=== PATIENT | female | born 1930 | race Caucasian/White ===

== ENCOUNTER → 2016-03-15 | Outpatient (CLI) | payer MEDICARE, BC ==
[~2016-03-15] MED LIST: ASPIRIN 81M81 MG/TA2 PO; ASPIRIN E.C. 8181 MG PO; CALCIUM CARBON500 M1 PO; CALCIUM CITRAT250 MG PO; CALCIUM CITRATE1 TAB PO; CARDENE 30MG CA30 MG PO; CELEBREX 200MG200 MG PO; CELEBREX200 MG PO; CEPHALEXIN500 M1 PO; COMPAZINE 110 MG/TAB PO; DEXILANT60 MG PO; DOXYCYCLINE 10100 MG PO; FENTANYL 12MCG TD; FENTANYL 25 MCG TD; FOLIC ACID 11 MG/TA1 PO; GEMCOR600 MG PO; IRON FERROUS S325 MG PO; IRON325 MG PO; LASIX 20MG TABL20 MG PO; LEVAQUIN 5500 MG/TA1 PO; LISINOPRIL10 MG PO; LOPID 600M600 MG/TAB PO; LOPRESSOR 225 MG/TAB PO; MEDROL 4MG DOSPA4 MG PO; MULTIPLE VITAMI1 CAP PO; MULTIPLE VITAMI1 TAB PO; MVI; NEURONTIN300 MG/CAP PO; NEXIUM 40MG40 MG PO; NORCO 325 MG-51 TAB PO; NORCOELIX PO; PHENERGAN 25 TA25 MG PO; PRILOSEC 20MG20 MG PO; PRINIVIL10 MG PO; PRINIVIL2.5 MG PO; PRINIVIL20 MG PO; PYRIDIUM 100MG100 MG PO; TOPROL XL 25MG25 MG PO; TOPROL XL25 MG PO; TYLENOL 325MG325 MG PO; TYLENOL 500MG500 MG PO; ULTRAM 50MG TAB50 MG PO; VALTREX1 GM PO; ZESTRIL 20MG TA20 MG PO; ZOFRAN 4MG T4 MG/TAB PO; ZOFRAN ODT4 MG PO
== END ==
LOC: COL.RAD 09:34
DX: C65.1 Malignant neoplasm of right renal pelvis (principal); S22.009A Unspecified fracture of unspecified thoracic vertebra, initial encounter for closed fracture; J90 Pleural effusion, not elsewhere classified; K44.9 Diaphragmatic hernia without obstruction or gangrene; S32.019A Unspecified fracture of first lumbar vertebra, initial encounter for closed fracture; S32.029A Unspecified fracture of second lumbar vertebra, initial encounter for closed fracture; S32.049A Unspecified fracture of fourth lumbar vertebra, initial encounter for closed fracture
CPT/HCPCS: Q9967

== ENCOUNTER → 2016-06-06 | Outpatient (CLI) | payer MEDICARE, BC | LOC: COL.RAD 08:42 | DX: C65.1 Malignant neoplasm of right renal pelvis (principal); R93.7 Abnormal findings on diagnostic imaging of other parts of musculoskeletal system; Z85.51 Personal history of malignant neoplasm of bladder | CPT/HCPCS: A9503 ==

== ENCOUNTER → 2016-07-01 | Outpatient (CLI) | payer MEDICARE, BC ==
[~2016-07-01] VITALS: Ht 152.4 cm; Wt 44.7 kg
[2016-07-01 13:45] VITALS: BP 115/70; PULSE 113; TEMP 98.5
== END ==
LOC: EUO 11:47
DX: E86.0 Dehydration (principal)
CPT/HCPCS: J7030

== ENCOUNTER → 2016-07-18 | Outpatient (CLI) | payer MEDICARE, BC | LOC: COL.VAS 10:00 | DX: R60.0 Localized edema (principal); R22.9 Localized swelling, mass and lump, unspecified; C65.1 Malignant neoplasm of right renal pelvis; M25.461 Effusion, right knee ==

== ENCOUNTER 2016-08-10 11:23 | Outpatient (RCR) | payer MEDICARE, BC ==
[2016-08-10] VITALS (14 sets, daily range): BP systolic 100–122; BP diastolic 59–88; PULSE 74–87; TEMP 97.4–98.8
[~2016-08-10 11:23] MED LIST changes: -CEPHALEXIN500 M1 PO; -DOXYCYCLINE 10100 MG PO; -FENTANYL 12MCG TD; -FOLIC ACID 11 MG/TA1 PO; -NEURONTIN300 MG/CAP PO; -ZOFRAN ODT4 MG PO
[2016-10-06] MEDS ORDERED: ZOFRAN ODT4 MG PO (16:51)
[2016-10-06] MEDS ORDERED: NEURONTIN300 MG/CAP PO (16:52)
[2016-10-06] MEDS ORDERED: CEPHALEXIN500 M1 PO (16:52)
[2016-10-06] MEDS ORDERED: FOLIC ACID 11 MG/TA1 PO (16:54)
[2016-10-06] MEDS ORDERED: FENTANYL 25 MCG TD (16:56)
[2016-10-06] MEDS ORDERED: FENTANYL 12MCG TD (16:56)
[2016-10-10] MEDS ORDERED: DOXYCYCLINE 10100 MG PO (11:07)
== END 2016-11-08 ==
LOC: EUO
DX: C65.1 Malignant neoplasm of right renal pelvis (principal)
CPT/HCPCS: J7050; P9016

== ENCOUNTER → 2016-08-17 | Outpatient (CLI) | payer MEDICARE, BC ==
[~2016-08-17] MED LIST changes: +CEPHALEXIN500 M1 PO; +DOXYCYCLINE 10100 MG PO; +FENTANYL 12MCG TD; +FOLIC ACID 11 MG/TA1 PO; +NEURONTIN300 MG/CAP PO; +ZOFRAN ODT4 MG PO
== END ==
LOC: EUO 08-10 17:04 → COL.VAS 13:33
DX: C65.1 Malignant neoplasm of right renal pelvis (principal); R60.0 Localized edema

== ENCOUNTER 2016-08-21 16:31 | Outpatient (RCR) | payer MEDICARE, BC ==
[~2016-08-21] VITALS: Ht 152.4 cm; Wt 43.0 kg
[~2016-08-21 16:31] MED LIST changes: -CEPHALEXIN500 M1 PO; -DOXYCYCLINE 10100 MG PO; -FENTANYL 12MCG TD; -FOLIC ACID 11 MG/TA1 PO; -NEURONTIN300 MG/CAP PO; -ZOFRAN ODT4 MG PO
[2016-08-22 17:20] VITALS: BP 118/62; PULSE 101; TEMP 98.1
[2016-08-22 17:35] VITALS: BP 105/57; PULSE 100; TEMP 97.4
[2016-08-22 17:50] VITALS: BP 98/70; PULSE 100; TEMP 98.3
[2016-08-22 18:00] VITALS: BP 103/67; PULSE 100; TEMP 97.5
[2016-10-06] MEDS ORDERED: ZOFRAN ODT4 MG PO (16:51)
[2016-10-06] MEDS ORDERED: NEURONTIN300 MG/CAP PO (16:52)
[2016-10-06] MEDS ORDERED: CEPHALEXIN500 M1 PO (16:52)
[2016-10-06] MEDS ORDERED: FOLIC ACID 11 MG/TA1 PO (16:54)
[2016-10-06] MEDS ORDERED: FENTANYL 25 MCG TD (16:56)
[2016-10-06] MEDS ORDERED: FENTANYL 12MCG TD (16:56)
[2016-10-10] MEDS ORDERED: DOXYCYCLINE 10100 MG PO (11:07)
== END 2016-11-19 ==
LOC: EUO
DX: C65.1 Malignant neoplasm of right renal pelvis (principal)
CPT/HCPCS: J1644; J7050; P9037

== ENCOUNTER 2016-10-06 16:25 | Inpatient (IN) | payer MEDICARE, BC ==
[~2016-10-06] VITALS: Ht 152.4 cm; Wt 45.3 kg
[2016-10-06] MEDS ORDERED: ZOFRAN ODT4 MG PO (16:51)
[2016-10-06] MEDS ORDERED: NEURONTIN300 MG/CAP PO (16:52)
[2016-10-06] MEDS ORDERED: CEPHALEXIN500 M1 PO (16:52)
[2016-10-06] MEDS ORDERED: FOLIC ACID 11 MG/TA1 PO (16:54)
[2016-10-06] MEDS ORDERED: FENTANYL 25 MCG TD (16:56)
[2016-10-06] MEDS ORDERED: FENTANYL 12MCG TD (16:56)
[2016-10-06 17:41] LABS: MEAN CELL VOLUME 111 fl (80.0-100.0); MEAN CORPUSCULAR HGB CONC 30 g/dl (33.0-37.0); MEAN PLATELET VOLUME 10.6 fl (7.4-10.4); PLATELET COUNT 105 K/mm3 (130-400); RED BLOOD COUNT 2.16 M/mm3 (4.10-5.30); REDCELL DISTRIBUTION WIDTH-CV 25.9 % (11.5-14.5); WHITE BLOOD COUNT 5.5 K/mm3 (4.8-10.8)
[2016-10-06 17:44] LABS: HEMOGLOBIN 7.3 g/dl (12.5-16.0); MEAN CORPUSCULAR HEMOGLOBIN 34 pg (27.0-31.0)
[2016-10-06 17:45] LABS: ADD PATHOLOGY DIFF REVIEW NO
[2016-10-06 17:59] LABS: ADJUSTED CALCIUM 8.6 mg/dL (8.4-10.2); ALBUMIN 3.2 gm/dL (3.5-5.0); BILIRUBIN,TOTAL 0.6 mg/dL (0.0-1.0); C-REACTIVE PROTEIN 2.9 mg/dL (0.0-0.9); CREATININE, serum 1.24 mg/dL (0.52-1.25); POTASSIUM 4.1 mmol/L (3.4-5.0); TOTAL PROTEIN 6.3 gm/dL (6.4-8.2)
[2016-10-06 18:19] LABS: ERYTHROCYTE SEDIMENTATION RATE > 140 mm/hr (0-30)
[2016-10-06 18:26] LABS: BAND 6 % (0-10); METAMYELOCYTE 1 % (0-0); NEUTROPHILS 65 % (42.0-75.2); TOTAL CELLS COUNTED 100
[2016-10-06 18:27] LABS: PLATELET ESTIMATE DECREASED (NORMAL)
[2016-10-06 18:28] LABS: ANISOCYTOSIS 2+; HYPOCHROMIA 2+; MICROCYTOSIS 2+
[2016-10-06 21:04] LABS: PH 5 (5-8); SQUAMOUS EPITHELIAL None Seen /hpf; URINE APPEARANCE Hazy; URINE BACTERIA Rare /hpf; URINE BILIRUBIN Negative (NEGATIVE); URINE BLOOD Negative (NEGATIVE); URINE COLOR Yellow; URINE GLUCOSE Negative (NEGATIVE); URINE KETONE Negative (NEGATIVE); URINE UROBILINOGEN Negative (NEGATIVE); URINE WBC 20-50 /hpf
[2016-10-06 22:39] VITALS: BP 117/58; PULSE 94; TEMP 97.8
[2016-10-07] VITALS (14 sets, daily range): BP systolic 102–157; BP diastolic 46–73; PULSE 91–121; TEMP 97–98.7
[2016-10-07 07:11] LABS: MEAN CELL VOLUME 113 fl (80.0-100.0); MEAN CORPUSCULAR HGB CONC 30 g/dl (33.0-37.0); MEAN PLATELET VOLUME 10.8 fl (7.4-10.4); PLATELET COUNT 106 K/mm3 (130-400); RED BLOOD COUNT 1.96 M/mm3 (4.10-5.30); REDCELL DISTRIBUTION WIDTH-CV 25.9 % (11.5-14.5); WHITE BLOOD COUNT 5.7 K/mm3 (4.8-10.8)
[2016-10-07 07:19] LABS: HEMATOCRIT 22.2 % (37.0-47.0); HEMOGLOBIN 6.6 g/dl (12.5-16.0); MEAN CORPUSCULAR HEMOGLOBIN 34 pg (27.0-31.0)
[2016-10-07 07:20] LABS: ADD PATHOLOGY DIFF REVIEW NO
[2016-10-07 07:32] LABS: CALCIUM 7.7 mg/dL (8.4-10.2); CREATININE, serum 1.13 mg/dL (0.52-1.25); POTASSIUM 3.7 mmol/L (3.4-5.0)
[2016-10-07 08:13] LABS: BAND 3 % (0-10); BASOPHIL 1 % (0-2); METAMYELOCYTE 5 % (0-0); NEUTROPHILS 69 % (42.0-75.2); TOTAL CELLS COUNTED 100
[2016-10-07 08:14] LABS: ANISOCYTOSIS 2+; MICROCYTOSIS 2+; POLYCHROMASIA 1+
[2016-10-07 08:15] LABS: POIKILOCYTOSIS 2+; ROULEAUX 1+
[2016-10-07 08:17] LABS: HYPOCHROMIA 1+
[2016-10-08 02:35] VITALS: BP 106/56; PULSE 103; TEMP 97.8
[2016-10-08 08:16] VITALS: BP 125/65; BP 162/72; PULSE 84; TEMP 97.5; TEMP 97.6
[2016-10-08 12:42] VITALS: BP 138/71; PULSE 101; TEMP 97.1
[2016-10-08 12:57] LABS: BASO % 0.3 % (0.0-2.0); EOS # 0.1 (0.0-0.7); EOS % 1.1 % (0-4.0); GRAN # 4.3 (1.4-6.5); LYMPH # 0.6 (1.2-3.4); LYMPH % 9.1 % (20.0-51.0); MEAN CORPUSCULAR HGB CONC 31 g/dl (33.0-37.0); MEAN PLATELET VOLUME 10.2 fl (7.4-10.4); MONO # 1.2 (0.1-0.6); PLATELET COUNT 142 K/mm3 (130-400); RED BLOOD COUNT 3.12 M/mm3 (4.10-5.30); REDCELL DISTRIBUTION WIDTH-CV 27.9 % (11.5-14.5); WHITE BLOOD COUNT 6.2 K/mm3 (4.8-10.8)
[2016-10-08 13:08] LABS: HEMOGLOBIN 9.9 g/dl (12.5-16.0); MEAN CELL VOLUME 103 fl (80.0-100.0); MEAN CORPUSCULAR HEMOGLOBIN 32 pg (27.0-31.0)
[2016-10-08 18:38] VITALS: BP 130/64; PULSE 99; TEMP 97.9
[2016-10-08 20:53] VITALS: BP 142/67; PULSE 95; TEMP 98
[2016-10-09] VITALS (7 sets, daily range): BP systolic 127–169; BP diastolic 62–83; PULSE 91–110; TEMP 97.6–98.7
[2016-10-09 06:03] LABS: MEAN CELL VOLUME 103 fl (80.0-100.0); MEAN CORPUSCULAR HGB CONC 30 g/dl (33.0-37.0); MEAN PLATELET VOLUME 10.1 fl (7.4-10.4); PLATELET COUNT 152 K/mm3 (130-400); RED BLOOD COUNT 3.15 M/mm3 (4.10-5.30); REDCELL DISTRIBUTION WIDTH-CV 27.6 % (11.5-14.5); WHITE BLOOD COUNT 5.3 K/mm3 (4.8-10.8)
[2016-10-09 06:28] LABS: HEMATOCRIT 32.5 % (37.0-47.0); HEMOGLOBIN 9.7 g/dl (12.5-16.0); MEAN CORPUSCULAR HEMOGLOBIN 31 pg (27.0-31.0)
[2016-10-09 06:29] LABS: ADD PATHOLOGY DIFF REVIEW NO
[2016-10-09 06:43] LABS: CALCIUM 7.6 mg/dL (8.4-10.2); CREATININE, serum 0.88 mg/dL (0.52-1.25); MAGNESIUM 1.9 mg/dL (1.6-2.3); PHOSPHOROUS 2.8 mg/dL (2.5-4.5); POTASSIUM 3.4 mmol/L (3.4-5.0)
[2016-10-09 07:36] LABS: ANISOCYTOSIS 4+; BAND 19 % (0-10); METAMYELOCYTE 2 % (0-0); NEUTROPHILS 65 % (42.0-75.2); OVALOCYTES 1+; PLATELET ESTIMATE NORMAL (NORMAL); TOTAL CELLS COUNTED 100
[2016-10-10 04:55] VITALS: BP 133/69; PULSE 100; TEMP 97.3
[2016-10-10 06:54] LABS: MEAN CELL VOLUME 104 fl (80.0-100.0); MEAN CORPUSCULAR HGB CONC 30 g/dl (33.0-37.0); MEAN PLATELET VOLUME 10.3 fl (7.4-10.4); PLATELET COUNT 171 K/mm3 (130-400); RED BLOOD COUNT 3.08 M/mm3 (4.10-5.30); REDCELL DISTRIBUTION WIDTH-CV 27.7 % (11.5-14.5); WHITE BLOOD COUNT 6.6 K/mm3 (4.8-10.8)
[2016-10-10 06:55] LABS: HEMOGLOBIN 9.7 g/dl (12.5-16.0); MEAN CORPUSCULAR HEMOGLOBIN 31 pg (27.0-31.0)
[2016-10-10 06:56] LABS: ADD PATHOLOGY DIFF REVIEW NO; HEMATOCRIT 31.9 % (37.0-47.0)
[2016-10-10 07:12] LABS: CALCIUM 7.6 mg/dL (8.4-10.2); CREATININE, serum 0.82 mg/dL (0.52-1.25); POTASSIUM 3.2 mmol/L (3.4-5.0)
[2016-10-10 08:00] LABS: BAND 11 % (0-10); EOSINOPHIL 3 % (0-4); METAMYELOCYTE 3 % (0-0); NEUTROPHILS 65 % (42.0-75.2); PLATELET ESTIMATE NORMAL (NORMAL); POLYCHROMASIA 1+; TOTAL CELLS COUNTED 100
[2016-10-10 08:37] VITALS: BP 152/83; PULSE 104; TEMP 97.8
[2016-10-10] MEDS ORDERED: DOXYCYCLINE 10100 MG PO (11:07)
[2016-10-10 12:34] VITALS: BP 134/63; PULSE 100; TEMP 97.2
[2016-10-10 13:17] VITALS: BP 134/63; PULSE 100; TEMP 97.2
== END 2016-10-10 14:29 | DRG 603 ==
LOC: COL.ER 16:25 → MEDICAL 20:10
PROVIDERS: Emergency Medicine; Internal Medicine; Nurse Practitioner Family; Physician Assistant
DX: L03.115 Cellulitis of right lower limb (principal); N39.0 Urinary tract infection, site not specified; C78.7 Secondary malignant neoplasm of liver and intrahepatic bile duct; Z66 Do not resuscitate; C79.01 Secondary malignant neoplasm of right kidney and renal pelvis; C79.51 Secondary malignant neoplasm of bone; E87.1 Hypo-osmolality and hyponatremia; E87.6 Hypokalemia; E11.9 Type 2 diabetes mellitus without complications; I10 Essential (primary) hypertension; C67.8 Malignant neoplasm of overlapping sites of bladder; Z85.3 Personal history of malignant neoplasm of breast; I97.2 Postmastectomy lymphedema syndrome; D64.81 Anemia due to antineoplastic chemotherapy; D63.0 Anemia in neoplastic disease; D69.6 Thrombocytopenia, unspecified
CPT/HCPCS: OP; 99223-AI; 99232-AI; 99239; J0696; J2543; J3370; J7030; J7050; P9016

== ENCOUNTER → 2016-11-13 | Outpatient (CLI) | payer MEDICARE, BC ==
[~2016-11-13] MED LIST changes: +CEPHALEXIN500 M1 PO; +DOXYCYCLINE 10100 MG PO; +FENTANYL 12MCG TD; +FOLIC ACID 11 MG/TA1 PO; +NEURONTIN300 MG/CAP PO; +ZOFRAN ODT4 MG PO
== END ==
LOC: COL.RAD 13:00
DX: C79.51 Secondary malignant neoplasm of bone (principal); C64.9 Malignant neoplasm of unspecified kidney, except renal pelvis; Z98.890 Other specified postprocedural states; Z90.710 Acquired absence of both cervix and uterus

== ENCOUNTER → 2017-01-20 | Outpatient (CLI) | payer MEDICARE, BC ==
[2017-01-20 20:00] LABS: MUCOUS Present /lpf; PH 6 (5-8); SQUAMOUS EPITHELIAL 20-50 /hpf; URINE APPEARANCE Cloudy; URINE BACTERIA Rare /hpf; URINE BILIRUBIN Negative (NEGATIVE); URINE BLOOD 1+ (NEGATIVE); URINE COLOR Yellow; URINE GLUCOSE Negative (NEGATIVE); URINE KETONE Negative (NEGATIVE); URINE LEUKOCYTE ESTERASE 1+ (NEGATIVE); URINE PROTEIN(semi-quant) 1+ (NEGATIVE); URINE RBC 20-50 /hpf; URINE WBC >50 /hpf
[2017-01-20 20:11] LABS: COLLECTION METHOD CLEAN CATCH
== END ==
LOC: ZCOL.LAB 19:47
PROVIDERS: Family Medicine
DX: N39.0 Urinary tract infection, site not specified (principal)